=== PATIENT | female | born 1995 | race Hispanic/Latino ===

== ENCOUNTER 2018-03-16 09:13 | Outpatient (CLI) | payer BC, OTHER | END 2018-03-16 09:14 | disposition home or self-care (01) | LOC: BICULT 09:13 | PROVIDERS: ATTEND Family Medicine | DX: Z34.02 Encounter for supervision of normal first pregnancy, second trimester (principal); Z3A.22 22 weeks gestation of pregnancy | CPT/HCPCS: 76805 ==

== ENCOUNTER 2018-07-23 17:24 | Inpatient (IN) | payer BC, OTHER ==
[~2018-07-23 17:24] MED LIST: Bupivacaine/Epinephrine 0.25% 30 ML VIAL ONE
[2018-07-23] MEDS ORDERED: Lidocaine 1% (PF) 30 ML VIAL SC PRN (17:49)
[2018-07-23] MEDS ORDERED: Butorphanol Tartrate 1 MG/ML VIAL SLOW IVP PRN (17:49)
[2018-07-23] MEDS ORDERED: Ibuprofen 800 MG TAB PO PRN (17:49)
[2018-07-23] MEDS ORDERED: Ondansetron PF 4 MG/2 ML Vial IVP PRN ×3 (17:49→22:27)
[2018-07-23] MEDS: Lactated Ringer's 1,000 ML IV SCH ×2 (18:00→20:00)
[2018-07-23] MEDS ORDERED: CEFAZOLIN/Water 2 GM/20 ML SYRINGE SLOW IVP SCH (18:00)
[2018-07-23 18:08] VITALS: BMI 33.5
[2018-07-23] MEDS ORDERED: Lactated Ringer's 1,000 ML IV SCH (18:15)
[2018-07-23 18:30] LABS: Hemoglobin 12.8 g/dL (12.0-16.0); Mean Corpuscular HGB CONC 32.7 g/dL (32.0-36.0); Mean Corpuscular Hemoglobin 30.7 pg (27.0-31.0); Mean Corpuscular Volume 93.9 fL (78.0-98.0); Mean Platelet Volume 7.6 fL (7.4-10.4); Platelet Count 227 thou/uL (130-400); RBC Distribution Width 12.8 % (11.5-14.5); Red Blood Cell (RBC) Count 4.19 mill/uL (4.20-5.40); White Blood Cell (WBC) Count 12.3 thou/uL (4.8-10.8)
[2018-07-23] MEDS ORDERED: CEFAZOLIN 2 GM/50 ML-DEXTROSE 2 GM in Premix Bag 1 BAG IVPB SCH (18:30)
[2018-07-23 19:06] LABS: HBSAg Index 0.24 S/CO (0-0.99); Hep B Surf Ag Non-Reactive S/CO (NonReactive); Syphilis Antibody Nonreactive (Nonreactive); Syphilis Antibody Index 0.04 S/CO (<1.00 Non-Reactive)
[2018-07-23] MEDS ORDERED: Fentanyl 4 mcg/Bup 0.1% Cadd 100 ML ONE (19:07)
[2018-07-23] MEDS ORDERED: NS / Oxytocin 40 units/1000ml 1,000 ML ONE (20:28)
[2018-07-23] MEDS ORDERED: Lidocaine 1% (PF) 30 ML VIAL ONE (20:28)
[2018-07-23] MEDS: NS / Oxytocin 40 units/1000ml 1,000 ML IV PRN ×2 (21:00→22:04)
[2018-07-23] MEDS ORDERED: diphenhydrAMINE 50 MG/ML VIAL IVP PRN (21:28)
[2018-07-23] MEDS ORDERED: Acetaminophen 325 MG TAB PO PRN (21:28)
[2018-07-23] MEDS ORDERED: Lactated Ringer's 500 ML IV PRN (21:28)
[2018-07-23] MEDS ORDERED: Hydrocerin (Eucerin) Cream 120 gm Jar TOP PRN (21:28)
[2018-07-23] MEDS ORDERED: ePHEDrine/0.9% NaCl/PF SYRINGE 50 mg/10 ml SLOW IVP PRN (21:28)
[2018-07-23] MEDS ORDERED: Naloxone HCl 0.4 mg/ml Vial IVP PRN ×2 (21:28)
[2018-07-23] MEDS ORDERED: Promethazine HCl 25 MG/ML VIAL IM PRN ×2 (21:28→22:27)
[2018-07-23] MEDS ORDERED: Communication Order-Pharmacy FS SCH (21:30)
[2018-07-23] MEDS ORDERED: Fentanyl 4 mcg/Bupivacaine 0.1% Cassette 100 ML EPIDURAL SCH (21:30)
[2018-07-23] MEDS ORDERED: Preparation H Ointment 28 GM TUBE PR PRN (22:27)
[2018-07-23] MEDS ORDERED: diphenhydrAMINE 25 MG CAP PO PRN (22:27)
[2018-07-23] MEDS ORDERED: Milk Of Magnesia 30 ML UDCUP PO PRN (22:27)
[2018-07-23] MEDS ORDERED: Acetaminophen/Codeine 30-300mg Tablet PO PRN ×2 (22:27→22:40)
[2018-07-23] MEDS ORDERED: Benzocaine/Menthol 20-0.5% 60 ML CAN TOP PRN (22:27)
[2018-07-23] MEDS ORDERED: Bisacodyl 10 MG SUPP PR PRN (22:27)
[2018-07-23] MEDS ORDERED: Lanolin Ointment 7 GM TUBE TOP PRN (22:27)
[2018-07-23] MEDS ORDERED: NS / Oxytocin 40 units/1000ml 1,000 ML IV SCH (22:27)
[2018-07-23] MEDS ORDERED: HYDROcodone/Acetaminophen 5/325 mg Tablet PO PRN ×2 (22:27→22:40)
[2018-07-23] MEDS: Ibuprofen 800 MG TAB PO SCH (22:35)
[2018-07-24] MEDS ORDERED: CEFAZOLIN 1 GM in Sodium Chloride 0.9% 100 ML IVPB SCH (02:00)
[2018-07-24] MEDS: Ibuprofen 800 MG TAB PO SCH ×3 (05:42→21:58)
[2018-07-24] MEDS: Prenatal Vitamin 1 TAB PO SCH (09:27)
[2018-07-24] MEDS: Docusate Calcium (SURFAK) 240 MG CAP PO SCH ×2 (09:27→21:58)
[2018-07-25 06:31] VITALS: TEMP 98.2
[2018-07-25] MEDS: Ibuprofen 800 MG TAB PO SCH ×2 (06:33→09:30)
[2018-07-25 08:58] VITALS: BP 111/79
[2018-07-25] MEDS: Prenatal Vitamin 1 TAB PO SCH (09:26)
[2018-07-25] MEDS: Docusate Calcium (SURFAK) 240 MG CAP PO SCH (09:26)
== END 2018-07-25 16:00 | disposition home or self-care (01) | DRG 807 ==
LOC: L&D/OP 17:24 → L&D 18:28 → 3SW 23:51
PROVIDERS: ADMIT Family Medicine; ATTEND Family Medicine
PROC: 10E0XZZ Delivery of Products of Conception, External Approach (ICD-10-PCS; principal; 2018-07-23)
PROC: 0HQ9XZZ Repair Perineum Skin, External Approach (ICD-10-PCS; 2018-07-23)
DX: O70.0 First degree perineal laceration during delivery (principal); Z37.0 Single live birth; O99.824 Streptococcus B carrier state complicating childbirth; Z3A.39 39 weeks gestation of pregnancy; J45.909 Unspecified asthma, uncomplicated
CPT/HCPCS: 36415; 51702; 85027; 86780; 86850; 86900; 86901; 87340; 99285; J0690; J2001; J2405

== ENCOUNTER 2019-04-30 14:24 | Outpatient (CLI) | payer BC, OTHER ==
--- NOTE | 2019-04-30 16:31 | ULT ---
OBSTETRICAL ULTRASOUND: 04/30/2019 COMPARISON: None. HISTORY: A 23-year-old female undergoing assessment of anatomy. TECHNIQUE: Multiplanar moreau-scale sonographic imaging of the gravid uterus obtained. FINDINGS: There is a single intrauterine gestation demonstrating a transverse lie with head to the maternal lef t. The placenta is located anteriorly, demonstrating no evidence for placenta previa or abruption. Cervical length is approximately 4.1 cm. Intracranial anatomy, nose and lips, stomach, urinary bladder, umbilical cord insertion, spine, umbilical cord, kidneys, and four-chamber heart view appear unremarkable. BIOMETRY: BPD: 4.0 cm (18 weeks 1 day) HEAD CIRCUMFERENCE: 15.3 cm (18 weeks 3 days) ABDOMINAL CIRCUMFERENCE: 13.7 cm (19 weeks 1 day) FEMUR LENGTH: 2.8 cm (18 weeks 4 days) Average age based on ultrasound is 18 weeks 4 days. Estimated weight is 257 g, +/- 38 g Estimated date of delivery is 09/27/2019. IMPRESSION: Single live intrauterine gestation. No abnormalities noted. Transcribed Date/Time: 04/30/2019 4:56 PM
== END 2019-04-30 14:25 | disposition home or self-care (01) ==
LOC: BICULT 14:24
PROVIDERS: ATTEND Family Medicine
DX: Z34.82 Encounter for supervision of other normal pregnancy, second trimester (principal); Z3A.18 18 weeks gestation of pregnancy
CPT/HCPCS: 76805

== ENCOUNTER → 2019-10-04 14:53 | Inpatient (IN) | payer BC, OTHER ==
[2019-10-02] MEDS: Misoprostol 100 MCG TAB VAG SCH (16:53)
[2019-10-02] MEDS: Lactated Ringer's 1,000 ML IV SCH ×2 (16:53→23:25)
[2019-10-02 17:18] VITALS: BMI 32.8
[2019-10-02 18:33] LABS: Mean Corpuscular HGB CONC 33.4 g/dL (32.0-36.0); Mean Corpuscular Hemoglobin 27.7 pg (27.0-31.0); Mean Corpuscular Volume 82.9 fL (78.0-98.0); Mean Platelet Volume 7.6 fL (7.4-10.4); Platelet Count 248 thou/uL (130-400); RBC Distribution Width 14.6 % (11.5-14.5); Red Blood Cell (RBC) Count 3.97 mill/uL (4.20-5.40); White Blood Cell (WBC) Count 11.2 thou/uL (4.8-10.8)
[2019-10-02 19:11] LABS: Syphilis Antibody Nonreactive (Nonreactive); Syphilis Antibody Index 0.05 S/CO (<1.00 Non-Reactive)
[2019-10-02 19:15] LABS: Hep B Surf Ag Non-Reactive S/CO (NonReactive)
[2019-10-03] MEDS: Lactated Ringer's 1,000 ML IV SCH (00:31)
[2019-10-03] MEDS: NS / Oxytocin 40 units/1000ml 1,000 ML IV PRN ×2 (02:45→03:41)
--- NOTE | 2019-10-03 04:22 | PDOC.BPN ---
- Brief Progress Note Called to room for evaluation of bleeding. Uterus firm but passing clots. Manually extracted softball sized clot from lower uterine segment with minimal bleeding afterward. Continue to monitor.
[2019-10-03] MEDS: Misoprostol 100 MCG TAB VAG SCH (05:18)
[2019-10-03] MEDS: Ibuprofen 800 MG TAB PO SCH ×3 (06:25→20:26)
[2019-10-03] MEDS: Ferrous Sulfate 325 MG TAB PO SCH ×2 (07:34→16:59)
[2019-10-03] MEDS: Docusate Calcium (SURFAK) 240 MG CAP PO SCH ×2 (08:09→20:27)
[2019-10-03] MEDS: Prenatal Vitamin 1 TAB PO SCH (08:09)
[2019-10-04] MEDS: Ibuprofen 800 MG TAB PO SCH ×2 (06:10→13:41)
--- NOTE | 2019-10-04 06:59 | PDOC.PP ---
Post Progress Note Post Day #: 1 Subjective: Doing well. No complaints. Wants to go home later today. PO intake tolerated: yes Flatus: yes Ambulation: yes Vital Signs (12 hours) Temp Pulse Resp BP Pulse Ox 10/03/19 19:09 98.3 F 90 16 115/63 99 Weight Weight 191 lb - Physical Examination General: NAD Cardiovascular: no m/r/g, RRR Respiratory: clear to auscultation bilaterally, non-labored breathing Abdominal: + bowel sounds, lochia, no distention, appropriately TTP Extremities: negative homans (B) Neurological: no gross focal deficits Result Diagrams: 10/02/19 18:24 Additional Labs: Post Labs Blood Type O POSITIVE 10/02/19 18:25 Hep Bs Antigen Non-Reactive S/CO (NonReactive) 10/02/19 18:25 (1) Vaginal delivery Code(s): O80 - ENCOUNTER FOR FULL-TERM UNCOMPLICATED DELIVERY Status: Acute - Assessment/Plan Routine PP assisted later today Continue to work on
[2019-10-04] MEDS: Ferrous Sulfate 325 MG TAB PO SCH ×2 (07:22→12:06)
[2019-10-04 08:04] VITALS: BP 110/55; TEMP 98
[2019-10-04] MEDS: Docusate Calcium (SURFAK) 240 MG CAP PO SCH (08:08)
[2019-10-04] MEDS: Prenatal Vitamin 1 TAB PO SCH (08:08)
[~2019-10-04 14:53] MED LIST changes: +Acetaminophen 325 MG TAB PO PRN; +Acetaminophen 500 MG TAB PO PRN; +Acetaminophen/Codeine 30-300mg Tablet PO PRN; +Benzocaine-Menthol 82.5 ML CAN TOP PRN; +Bisacodyl 10 MG SUPP PR PRN; -Bupivacaine/Epinephrine 0.25% 30 ML VIAL ONE; +Butorphanol Tartrate 1 MG/ML VIAL SLOW IVP PRN; +Communication Order-Pharmacy FS SCH; +Fentanyl 4 mcg/Bup 0.1% Cadd 100 ML ONE; +Fentanyl 4 mcg/Bupivacaine 0.1% Cassette 100 ML EPIDURAL SCH; +HYDROcodone/Acetaminophen 5/325 mg Tablet PO PRN; +Ibuprofen 800 MG TAB PO PRN; +Lactated Ringer's 500 ML IV PRN; +Lanolin Ointment 7 GM TUBE TOP PRN; +Lidocaine 1% (PF) 30 ML VIAL ONE; +Lidocaine 1% (PF) 30 ML VIAL SC PRN; +Methylergonovine 0.2 MG/ML VIAL IM PRN; +Milk Of Magnesia 30 ML UDCUP PO PRN; +Misoprostol 100 MCG TAB ONE; +Misoprostol 200 MCG TAB PR PRN; +NS / Oxytocin 40 units/1000ml 1,000 ML IV SCH; +NS w/ Oxytocin 10 units 500 ML IV SCH; +Naloxone HCl 0.4 mg/ml Vial IVP PRN; +Ondansetron PF 4 MG/2 ML Vial IVP PRN; +Preparation H Ointment 28 GM TUBE PR PRN; +Promethazine HCl 25 MG/ML VIAL IM PRN; +diphenhydrAMINE 25 MG CAP PO PRN; +diphenhydrAMINE 50 MG/ML VIAL IVP PRN; +ePHEDrine/0.9% NaCl/PF SYRINGE 50 mg/10 ml SLOW IVP PRN; +hydrALAZINE 20 MG/ML VIAL SLOW IVP PRN; +traMADol HCl 50 MG TAB PO PRN
== END | disposition home or self-care (01) | DRG 807 ==
LOC: EDSTATUS 09-30 14:42 → L&D 10-02 16:02 → 3SE 10-03 05:59
PROVIDERS: ADMIT Family Medicine; ATTEND Family Medicine
PROC: 10E0XZZ Delivery of Products of Conception, External Approach (ICD-10-PCS; principal; 2019-10-03)
PROC: 10907ZC Drainage of Amniotic Fluid, Therapeutic from Products of Conception, Via Natural or Artificial Opening (ICD-10-PCS; 2019-10-03)
PROC: 3E0P7VZ Introduction of Hormone into Female Reproductive, Via Natural or Artificial Opening (ICD-10-PCS; 2019-10-03)
PROC: 3E033VJ Introduction of Other Hormone into Peripheral Vein, Percutaneous Approach (ICD-10-PCS; 2019-10-03)
DX: O48.0 Post-term pregnancy (principal); Z37.0 Single live birth; Z3A.40 40 weeks gestation of pregnancy; Z88.0 Allergy status to penicillin; Z88.1 Allergy status to other antibiotic agents
CPT/HCPCS: 36415; 51702; 85027; 86780; 86850; 86900; 86901; 87340; J2001